=== PATIENT | male | born 1955 | race Two or more races ===

== ENCOUNTER 2018-04-08 06:19 | Day surgery (SDC) | payer OTHER ==
[~2018-04-08] VITALS: Ht 157.5 cm; Wt 71.7 kg
[2018-04-08 07:07] VITALS: BP 153/72
[2018-04-08 10:08] VITALS: BP 130/70
== END 2018-04-08 10:15 | disposition home or self-care (01) ==
LOC: DS 06:19 → OR 08:00 → GI 08:00 → DS 10:15
PROVIDERS: Internal Medicine Gastroenterology
PROC: 0D5N8ZZ Destruction of Sigmoid Colon, Via Natural or Artificial Opening Endoscopic (ICD-10-PCS; 2018-04-08)
PROC: 0DBN8ZZ Excision of Sigmoid Colon, Via Natural or Artificial Opening Endoscopic (ICD-10-PCS; principal; 2018-04-08 08:00)
PROC: 0D5P8ZZ Destruction of Rectum, Via Natural or Artificial Opening Endoscopic (ICD-10-PCS; 2018-04-08 08:00)
DX: Z12.11 Encounter for screening for malignant neoplasm of colon (principal); D12.5 Benign neoplasm of sigmoid colon; K57.30 Diverticulosis of large intestine without perforation or abscess without bleeding; K63.89 Other specified diseases of intestine
CPT/HCPCS: 45378; J1610; J2250; J2310; J3010; J3490